=== PATIENT | female | born 1995 | race Caucasian/White ===

== ENCOUNTER 2022-09-16 21:15 | Emergency (ER) | payer BC, SELFPAY ==
[2022-09-16 21:19] VITALS: BP 125/87; PULSE 104; RESP 16; TEMP 36.5; O2SAT 100; BMI 29.8
[2022-09-16] MEDS: Ibuprofen 400 MG TABLET PO (22:49)
[2022-09-16] MEDS: oxyCODONE HCl Immed Release 5 MG TABLET 10 MG PO (22:49)
--- NOTE | 2022-09-17 00:33 | ED.SKABFB ---
HPI - Skin/Abscess/Foreign Bdy General Chief complaint: Skin/Abscess/Foreign Body Stated complaint: obgyn issues Time Seen by Provider: 09/16/22 22:28 Source: patient and family () Mode of arrival: ambulatory Limitations: no limitations History of Present Illness HPI narrative: 27-year-old female who presents emergency department for evaluation of cyst to her vagina . Patient states she started her menstrual period approximately 4 days prior. She states she was having pain with trying to insert a tampon in this pain got progressively worse and she had to use pads. Her looked in her vaginal area and noted a cyst inside the vagina. The patient states that she has had nausea over the past 2 days with no vomiting. She has not noticed any vaginal discharge. She denied fever or chills. Related Data Previous Rx's Medication Instructions Recorded doxycycline hyclate 100 mg tablet 100 mg PO Q12H 5 days #10 tabs 09/17/22 metronidazole 500 mg tablet 500 mg PO TID 5 days #15 tabs 09/17/22 oxycodone 5 mg tablet 5 mg PO Q4H PRN pain #16 tabs 09/17/22 Allergies Allergy/AdvReac Type Severity Reaction Status Date / Time No Known Allergies Allergy Verified 09/16/22 21:22 Review of Systems Review of Systems: Yes all other systems are reviewed and are negative [facility] Past Medical History [facility] Narrative: Past medical history: None. Past surgical history: Appendectomy. 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 She is and her is a pharmacist here at [facility]. Social History Social History Advance Directives: No Advance Directives Information Provided: No Physical Exam Vital Signs: Vital Signs: Last Vital Signs Temp 97.7 F 09/16/22 21:19 Pulse 104 H 09/16/22 21:19 Resp 16 09/16/22 21:19 BP 125/87 09/16/22 21:19 Pulse Ox 100 09/16/22 21:19 O2 Del Method Room Air 09/16/22 21:19 BMI result Body Mass Index 29.8 General: Awake, alert, female patient, very pleasant cooperative in no distress HEENT: Head is normal cephalic and atraumatic, pupils were equal round reactive light, sclera contact however normal, mouth revealed moist membranes, Neck: No adenopathy Lungs: Soft, nontender, nondistended Abdomen: Soft, nontender, nondistended, normoactive bowel sounds Pelvic exam: The patient has an abscess to her right vaginal wall consistent with a Bartholin's cyst, the cyst is approximately 1 cm in diameter, very tender to palpation, does extend into the vagina Back: No CVA tender Extremities: Normal Neuro: None for Medications Administered Discontinued Medications Generic Name Dose Route Start Last Admin Trade Name Pedro PRN Reason Stop Dose Admin Ibuprofen 400 mg 09/16/22 22:42 09/16/22 22:49 Ibuprofen 400 Mg Tablet PO 09/16/22 22:43 400 mg ONCE ONE Administration Oxycodone HCl 10 mg 09/16/22 22:42 09/16/22 22:49 Oxycodone Hcl Immed Release 5 Mg Tablet PO 09/16/22 22:43 10 mg ONCE ONE Administration Medical Decision Making Medical Decision Making MDM Narrative: 27-year-old female who presents emergency department for evaluation of vaginal pain and vaginal cyst. The patient's physical examination is consistent with a Bartholin's cyst. The cyst was anesthetized, incised and drained. Approximately 5-10 mL of purulent material was expressed from the cyst. We attempted to place a Word cath however the abscess wall was too thin and the abscess cavity was too small. Wound culture was obtained. Patient pain was treated with oxycodone 10 mg, ibuprofen 400 mg, Tylenol 975 mg. Patient's infection was treated with doxycycline 100 mg orally and metronidazole 500 mg orally Differential Diagnosis Differential diagnosis includes was not limited to labial abscess, Bartholin's cyst abscess Independent Historian Clinical information obtained from an independent historian. History obtained from or confirmed by: Spouse Procedures Procedure Narrative Procedure Narrative: Incision and drainage of right vaginal Bartholin gland abscess: The patient left vaginal wall was prepped with Betadine and anesthetized with 1% lidocaine x3 cc. In the abscess was injected, the abscess burst and approximately 5-10 mL of purulent material was expressed from the wound. An incision over the abscess was made with a #11. Blade scalpel to further open the abscess. I attempted to place a Word catheter however the abscess wall was too thin in the cavity was too small to hold the catheter. The patient did experience pain during the procedure tolerated the procedure well. A wound culture was sent. Discharge Plan Discharge Clinical Impression: Abscess of Bartholin's gland Patient Disposition: Home, Self-Care Instructions: Bartholin Cyst (ED) Additional Instructions: Your exam was consistent with a right Bartholin's gland abscess or vaginal wall abscess When we injected the abscess, it spontaneously drain approximately 5-10 mL purulent material (pus). The abscess wall was too thin and the abscess cavity was too small so we are not able to place a Word catheter. Take ibuprofen 200 mg pills, 2 pills every 6 hours as needed for pain. Take Tylenol (acetaminophen) 500 mg pills, 2 pills every 6 hours as needed for pain. For pain not relieved by ibuprofen or Tylenol take oxycodone 5 mg pills, 1 every 4 hours as needed for pain. Do not drive or work while taking this medication since they can cause sleepiness. Oxycodone is a narcotic medication that can be addicting. If you are concerned about addiction you can ask the pharmacist for less pills or do not get this prescription filled. Take doxycycline 100 mg, 1 pill every 12 hours for 5 days Take Flagyl (metronidazole) 500 mg pills, 1 pill 3 times a day for 5 days Follow-up with your gynecology within 1 week for re-evaluation Please return to the emergency department if your symptoms get worse or if you develop any symptoms that are concerning to you. Please see the work note. Prescriptions: New metronidazole 500 mg tablet 500 mg PO TID 5 Days Qty: 15 0RF doxycycline hyclate 100 mg tablet 100 mg PO Q12H 5 Days Qty: 10 0RF oxycodone 5 mg tablet 5 mg PO Q4H PRN (Reason: pain) Qty: 16 0RF Rx Instructions: Patient may request partial fill; Partial Fill upon patient request. Stand Alone Forms: Work/School Release
[2022-09-17] MEDS: Acetaminophen 325 MG TABLET 975 MG PO (00:38)
[2022-09-17] MEDS: metroNIDAZOLE 500 MG TABLET PO (00:38)
[2022-09-17] MEDS: Lidocaine HCl 1 % MPF 5 ML VIAL INFILTRATI (00:39)
[2022-09-17] MEDS: Doxycycline Monohydrate 100 MG CAPSULE PO (00:39)
== END 2022-09-17 01:05 | disposition home or self-care (01) ==
PROVIDERS: Emergency Provider Emergency Medicine Emergency Medical Services
DX: N75.0 Cyst of Bartholin's gland (principal); Z79.899 Other long term (current) drug therapy
CPT/HCPCS: 56420; 87070; 87205; 99283